=== PATIENT | female | born 1970 | race Caucasian/White ===

== ENCOUNTER → 2020-04-12 13:59 | Outpatient (CLI) | payer OTHER, SELFPAY ==
--- NOTE | ~2020-04-12 | MM_ITS ---
EXAMINATION: MM screening [facility] BI w holly HISTORY: Screening mammogram TECHNIQUE: Craniocaudal and mediolateral oblique 3-D tomosynthesis images were obtained and synthetic 2-D images were generated. CAD analysis was submitted and interpreted. COMPARISON: 10/02/2018, 09/17/2018, 09/01/2017, 08/09/2016 BREAST PARENCHYMAL COMPOSITION: The breasts are heterogeneously dense, which may obscure small masses . FINDINGS: Stable intramammary lymph nodes are present in the upper outer quadrants of the breasts. Th ere is no evidence of suspicious mass, calcification, or architectural distortion to suggest malignan cy in either breast. There has been no suspicious interval change. IMPRESSION: 1. No mammographic evidence of malignancy. 2. Recommend routine screening mammography in one year. BI-RADS Category 2: Benign finding(s). Reviewed, dictated and finalized at location A.
== END ==
PROVIDERS: PCP Family Medicine; Visit Provider Family Medicine
DX: Z12.31 Encounter for screening mammogram for malignant neoplasm of breast (principal)
CPT/HCPCS: 77063; 77067

== ENCOUNTER 2020-05-25 07:22 | Outpatient (CLI) | payer OTHER, SELFPAY ==
--- NOTE | ~2020-05-25 | CT_ITS ---
EXAMINATION: CT chest abdomen pelvis w con DATE: 05/25/2020 07:59 INDICATION: Malignant neoplasm metastatic to the bone, indeterminate lesion of the T9 vertebral body detected on outside hospital MRI TECHNIQUE: Transaxial computed tomographic images of the chest, abdomen, and pelvis were obtained aft er the administration of 100 cc of Omnipaque 350 intravenous contrast. The dose-length product (DLP) was 471.02 mGy-cm. Automated exposure control and iterative reconstruction technique were employed. COMPARISON: None FINDINGS: CHEST CT: The lungs are free of acute opacities. There is no pleural effusion or pneumothorax. No pathologicall y enlarged thoracic lymph nodes are identified. The heart size is normal. There is a 7 mm x 5 mm oval hypoattenuating lesion in the anterior aspect of the T9 vertebral which has an appearance suggestive of degenerative change. No correlate is identified for the lesion described on MRI. ABDOMEN/PELVIS CT: The liver, spleen, pancreas, gallbladder, and adrenal glands are normal. There is a 2 mm nonobstructi ng stone of the right kidney lower pole. Cysts of the kidneys measure up to 1.7 cm on the right. No p athologically enlarged abdominal or pelvic lymph nodes are identified. There is no free intraperitone al gas or evidence of bowel obstruction. A moderate volume of colonic stool is present. The appendix is normal. There is mild lumbar spondylosis. IMPRESSION: 1. No primary malignancy identified to account for the T9 vertebral body abnormality described on the outside hospital MRI. Reviewed, dictated and finalized at location A. IMPRESSION: 1. No primary malignancy identified to account for the T9 vertebral body abnorm ality described on the outside hospital MRI.
== END 2020-05-25 07:23 | disposition home or self-care (01) ==
PROVIDERS: PCP Family Medicine; Visit Provider Family Medicine
DX: C79.51 Secondary malignant neoplasm of bone (principal); C80.1 Malignant (primary) neoplasm, unspecified
CPT/HCPCS: 71260; 74177; Q9967

== ENCOUNTER → 2021-05-10 13:42 | Outpatient (CLI) | payer OTHER, SELFPAY ==
--- NOTE | ~2021-05-10 | MM_ITS ---
EXAMINATION: MM screening [facility] w [facility] HISTORY: Screening TECHNIQUE: Craniocaudal and mediolateral oblique 3-D tomosynthesis images were obtained and synthetic 2-D images were generated. CAD analysis was submitted and interpreted. COMPARISON: Comparison to multiple prior studies sequentially, with oldest reviewed study dated 01/2016. BREAST PARENCHYMAL COMPOSITION: Breast composed of scattered areas of fibroglandular density FINDINGS: There is no evidence of suspicious mass, calcification, or architectural distortion to sugg est malignancy in either breast. There has been no suspicious interval change. IMPRESSION: 1. No mammographic evidence of malignancy. 2. Recommend routine screening mammography in one year. BI-RADS Category 1: Negative Reviewed, dictated and finalized at location A.
== END ==
PROVIDERS: PCP Family Medicine; Visit Provider Family Medicine
DX: Z12.31 Encounter for screening mammogram for malignant neoplasm of breast (principal)
CPT/HCPCS: 77063; 77067

== ENCOUNTER → 2021-06-21 14:59 | Outpatient (CLI) | payer OTHER, SELFPAY ==
--- NOTE | ~2021-06-21 | US_ITS ---
EXAMINATION: US renal BI DATE: 06/21/2021 15:53 INDICATION: Cyst of the kidney TECHNIQUE: Multiple grayscale and Doppler ultrasound images of the kidneys were obtained. COMPARISON: CT, 05/25/2020 FINDINGS: The right kidney measures 10.1 x 4.3 x 4.5 cm. The cyst described on recent CT is not defin itely identified. The left kidney measures 9.9 x 4.7 x 4.8 cm. The kidneys demonstrate normal parench ymal echogenicity. There is no hydronephrosis. The bladder is normal. IMPRESSION: 1. Normal kidneys without hydronephrosis. Reviewed, dictated and finalized at location A.
== END ==
PROVIDERS: PCP Family Medicine; Visit Provider Physician Assistant
DX: N28.1 Cyst of kidney, acquired (principal)
CPT/HCPCS: 76775

== ENCOUNTER 2021-08-24 00:40 | Day surgery (SDC) | payer OTHER, SELFPAY ==
[2021-08-08 13:52] VITALS: BMI 28.6
[2021-08-24 09:45] VITALS: BP 127/93; PULSE 98; RESP 18; TEMP 36.8; O2SAT 96; BMI 28.3
--- NOTE | 2021-08-24 09:53 | WPDGICN ---
Assessment and Plan Assessment and plan (1) Screening for colon cancer: Code(s): Z12.11 - Encounter for screening for malignant neoplasm of colon Status: Acute Assessment and Plan: Patient presents for screening colonoscopy today. She reports having had colon polyps by previous X exam in [place] 6 or 8 years ago. Additionally family history is significant both father and sister have had colon polyps. (2) History of colon polyps: Code(s): Z86.010 - Personal history of colonic polyps Status: Acute (3) Family history of colonic polyps: Code(s): Z83.71 - Family history of colonic polyps Status: Acute (4) Multiple sclerosis: Code(s): G35 - Multiple sclerosis Status: Acute GI Consult Note Consult date/time: 08/24/21 09:53 HPI: Alisha Orozco is a 50 year old female Presents for screening colonoscopy. Patient has an underlying history of multiple sclerosis. She takes no medications for this. Patient reports that she previously lived in [place] had a colonoscopy 7 or 8 years ago the did reveal several polyps. She reports that her father and sister both have had colon polyps. Patient presents today for follow-up screening colonoscopy. She states that her current weight appetite and bowel movements are normal. She denies abdominal pain. She has had no bleeding. Review of Systems Review of Systems: All systems reviewed & are unremarkable except as noted in HPI and below PMFSH Past Medical History Medical History (Updated 08/24/21 @ 09:55 by Sesar Michaels MD) Allergic rhinitis Hypothyroidism (acquired) Multiple sclerosis Renal cyst Rosacea Family History Family History Father Family history of heart disease in male family member before age 55 Patient's father is Heart disease Mother Family history of heart disease in male family member before age 55 Patient's mother is Hypertension Heart disease Kidney failure due to vascular disorder Social History Social History (Updated 06/14/21 @ 08:13 by Ruby Valenzuela) Smoking packs per day: 0.5 Smoking cigarettes per day: 10.0 Years smoked: 10 Smoking pack-years: 5.00 Smoking status: Former smoker Tobacco type: cigarettes Second hand tobacco smoke exposure: Yes Smoking end date: 10/06/92 Alcohol intake: former Alcohol use details: social Substance use: never Substance use type: does not use Living arrangements: with family Gender identity (if verbalized by the patient): Female Sexual Orientation (if Verbalized by the Patient): Straight or Heterosexual Spiritual care concerns: No Meds Home Medications and Allergies Home Medications Medication Instructions Recorded Confirmed Type doxycycline monohydrate 50 mg 50 mg PO DAILY #90 tablet 01/03/21 08/24/21 Rx tablet cholecalciferol (vitamin D3) 10 10 mcg PO DAILY 06/14/21 08/24/21 History mcg (400 unit) tablet levothyroxine [Synthroid] 88 mcg PO DAILY 08/08/21 08/24/21 History Allergies Allergy/AdvReac Type Severity Reaction Status Date / Time ciprofloxacin Allergy Unknown Unknown Verified 08/24/21 09:44 iodine Allergy Unknown swelling Verified 08/24/21 09:44 latex Allergy Unknown Unknown Verified 08/24/21 09:44 Penicillins Allergy Unknown Unknown Verified 08/24/21 09:44 Quinolones AdvReac Unknown Unknown Verified 08/24/21 09:44 Vital Signs Vital Signs - 24 hr 08/24/21 09:45 Temperature 98.2 F Pulse Rate 98 Respiratory Rate 18 Blood Pressure 127/93 H Pulse Oximetry 96 Exam Narrative: Physical exam reveals patient be alert. Vital signs stable. HEENT exam is unremarkable. Patient is anicteric. Lungs are clear to auscultation and percussion. Heart is without murmur or extra sounds. Abdominal exam bowel sounds are present soft nontender with no organomegaly. Digital
[2021-08-24] MEDS: LACTATED RINGERS 1,000 ML 150 ML IV CONT (10:10)
--- NOTE | 2021-08-24 10:11 | SUR.PREOP ---
Patient unable to void for urine test. Blood drawn and sent down for serum test.
--- NOTE | 2021-08-24 10:35 | WPDANESEPPF ---
Anes - Initial Pre Proc Eval Procedure: Operation Date: 08/24/21 10:30 Proposed Procedures p Screening Colonoscopy - Sesar Michaels MD Date/Time: 08/24/21 10:35 Surgeon: Sesar Michaels MD Pre Op Diagnosis: neoplasm screening Patient Data Age: 50 Gender: F Height: 1.57 m Weight: 70.1 kg Last Vital Signs Temp 98.2 F 08/24/21 09:45 Pulse 98 08/24/21 09:45 Resp 18 08/24/21 09:45 BP 127/93 H 08/24/21 09:45 Pulse Ox 96 08/24/21 09:45 Allergies Allergy/AdvReac Type Severity Reaction Status Date / Time ciprofloxacin Allergy Unknown Unknown Verified 08/24/21 09:44 iodine Allergy Unknown swelling Verified 08/24/21 09:44 latex Allergy Unknown Unknown Verified 08/24/21 09:44 Penicillins Allergy Unknown Unknown Verified 08/24/21 09:44 Quinolones AdvReac Unknown Unknown Verified 08/24/21 09:44 Home Medications Medication Instructions Recorded Confirmed Type doxycycline monohydrate 50 mg 50 mg PO DAILY #90 tablet 01/03/21 08/24/21 Rx tablet cholecalciferol (vitamin D3) 10 10 mcg PO DAILY 06/14/21 08/24/21 History mcg (400 unit) tablet levothyroxine [Synthroid] 88 mcg PO DAILY 08/08/21 08/24/21 History Laboratory Tests 08/24/21 10:07 Beta HCG, Quant Pending Patient hx anesthesia problems: none Family hx anesthesia problems: none Results Review: All pre-operative results and documents have been reviewed as part of the pre-operative evaluation. [facility] Past Medical History Medical History (Updated 08/24/21 @ 09:55 by Sesar Michaels MD) Allergic rhinitis Hypothyroidism (acquired) Multiple sclerosis Renal cyst Rosacea Family History Family History Father Family history of heart disease in male family member before age 55 Patient's father is Heart disease Mother Family history of heart disease in male family member before age 55 Patient's mother is Hypertension Heart disease Kidney failure due to vascular disorder Social History Social History (Updated 06/14/21 @ 08:13 by Ruby Valenzuela) Smoking packs per day: 0.5 Smoking cigarettes per day: 10.0 Years smoked: 10 Smoking pack-years: 5.00 Smoking status: Former smoker Tobacco type: cigarettes Second hand tobacco smoke exposure: Yes Smoking end date: 10/06/92 Alcohol intake: former Alcohol use details: social Substance use: never Substance use type: does not use Living arrangements: with family Gender identity (if verbalized by the patient): Female Sexual Orientation (if Verbalized by the Patient): Straight or Heterosexual Spiritual care concerns: No Anes - Eval Final PreProcedure Day of Procedure 08/24/21 10:35 Patient weight: normal Heart: regular rate and rhythm Lungs: clear to auscultation Airway: Mallampati scale class II Neurological: alert and oriented Last oral intake: >/= 8 hours ASA classification: II Emergent: no Anesthetic plan: proceed Anesthesia type and monitoring: general GIVS and standard monitoring Results Review: All pre-operative results and documents have been reviewed as part of the pre-operative evaluation. Informed Consent: The patient's anesthetic plan and its attendant risks and benefits were discussed with the patient/family/POA. Questions were solicited and answers provided to the satisfaction of the patient/family/POA.
[2021-08-24 10:38] LABS: Beta HCG Quantitative < 2.39 mIU/ML
[2021-08-24 11:07] VITALS: BP 126/76; PULSE 94; RESP 25; O2SAT 100
[2021-08-24 11:17] VITALS: BP 148/77; PULSE 98; RESP 24; O2SAT 100
[2021-08-24 11:27] VITALS: BP 119/76; PULSE 86; RESP 18; O2SAT 100
== END 2021-08-24 11:41 | disposition home or self-care (01) ==
PROVIDERS: Anesthesiology; PCP Family Medicine; Visit Provider Internal Medicine Gastroenterology
PROC: 0DJD8ZZ Inspection of Lower Intestinal Tract, Via Natural or Artificial Opening Endoscopic (ICD-10-PCS; CPT 45378; principal; 2021-08-24 10:30)
DX: Z12.11 Encounter for screening for malignant neoplasm of colon (principal); K64.8 Other hemorrhoids; E03.9 Hypothyroidism, unspecified; G35 Multiple sclerosis; L71.9 Rosacea, unspecified; Z87.891 Personal history of nicotine dependence; Z86.010 Personal history of colon polyps; Z83.71 Family history of colonic polyps
CPT/HCPCS: 45378; 36415; 84702; J2704; J7120

== ENCOUNTER → 2022-05-13 10:29 | Outpatient (CLI) | payer OTHER, SELFPAY ==
--- NOTE | ~2022-05-13 | MM_ITS ---
EXAMINATION: MM screening [facility] w [facility] HISTORY: Screening mammogram, family history of breast cancer in her sister. TECHNIQUE: Craniocaudal and mediolateral oblique 3-D tomosynthesis images were obtained and synthetic 2-D images were generated. CAD analysis was submitted and interpreted. COMPARISON: 05/10/2021, 04/12/2020 BREAST PARENCHYMAL COMPOSITION: The breasts are heterogeneously dense, which may obscure small masses . FINDINGS: There is no suspicious mass, calcification, or architectural distortion to suggest malignan cy in either breast. There has been no suspicious interval change. IMPRESSION: 1. No mammographic evidence of malignancy. 2. Recommend routine screening mammography in one year. BI-RADS Category 1: Negative Reviewed, dictated and finalized at location A.
== END ==
PROVIDERS: PCP Family Medicine; Visit Provider Family Medicine
DX: Z12.31 Encounter for screening mammogram for malignant neoplasm of breast (principal)
CPT/HCPCS: 77063; 77067

== ENCOUNTER → 2022-09-10 10:10 | Outpatient (CLI) | payer OTHER, SELFPAY ==
--- NOTE | ~2022-09-10 | XR_ITS ---
XR abdomen/kub 1V 09/10/2022 10:20 Indication: Intermittent right-sided abdominal and flank pain Procedure: KUB Comparison: CT dated 05/25/2020 Findings: There are faint calcifications in the right kidney likely stones in the renal pelvis. No ga s pattern nonobstructive. Lung bases are unremarkable. No acute osseous abnormality. Impression: 1: Probable right nephrolithiasis. Reviewed, dictated and finalized at location A. OPERATOR Impression: 1: Probable right nephrolithiasis.
== END ==
PROVIDERS: PCP Family Medicine; Visit Provider Nurse Practitioner Gerontology
DX: R10.9 Unspecified abdominal pain (principal)
CPT/HCPCS: 74018